=== PATIENT | female | born 1965 | race Caucasian/White ===

== ENCOUNTER 2017-10-19 16:40 | Inpatient (IN) | payer SELFPAY ==
[~2017-10-19] VITALS: Ht 154.9 cm; Wt 73.5 kg
[~2017-10-19 16:40] MED LIST: COL100 PO; MYL80 CH; NORCO1 TA2 PO; ZES5 PO
[2017-10-19 16:51] VITALS: Ht 154.9 cm; Wt 73.5 kg
[2017-10-19 17:52] LABS: microscopic required? NO
[2017-10-19] MEDS ORDERED: [UNRECOGNIZED DRUG - OTHER] PO (17:58)
[2017-10-19] MEDS ORDERED: APAP500 MG PO (17:58)
[2017-10-19 18:27] LABS: BASOPHIL % 0.4 % (0-2); PLATELET COUNT 236 x10^3mcL (130-400); RED CELL DISTRIBUTION WIDTH 13.8 % (11.5-14.5)
[2017-10-19 18:29] LABS: urine erythrocyte NEGATIVE (NEGATIVE)
[2017-10-19 18:41] LABS: ALKALINE PHOSPHATASE 100 U/L (46-116); ALT/SGPT 41 U/L (14-59); AST/SGOT 29 U/L (15-37); BILIRUBIN TOTAL 0.3 mg/dL (0.20-1.00); CALCIUM 8.2 mg/dL (8.5-10.1); CARBON DIOXIDE 24.5 mmol/L (21-32); CHLORIDE SERUM 102 mmol/L (98-107); CREATININE SERUM 0.7 mg/dL (0.6-1.0); GFR1 > 60 mL/min; GLUCOSE SERUM 91 mg/dL (74-106); SODIUM SERUM 140 mmol/L (136-145); TOTAL PROTEIN, SERUM 7.5 g/dL (6.4-8.2)
[2017-10-19 18:42] LABS: ALBUMIN 3.3 g/dL (3.4-5.0)
[2017-10-19 22:43] LABS: MAGNESIUM 2.1 mg/dL (1.8-2.4); PHOSPHOROUS 3.5 mg/dL (2.5-4.9)
[2017-10-19 22:49] LABS: CHOLESTEROL/HDL RATIO 4.8
[2017-10-19 22:51] LABS: T3 TOTAL 1.18 ng/mL
[2017-10-19 22:53] LABS: FREE T4 1.1 ng/dL (0.76-1.46); FREE THYROXINE INDEX 2.4 ug/dL (1.4-4.5); T4(THYROXINE) 7.5 ug/dL (4.7-13.3)
[2017-10-19 23:21] VITALS: BP 183/93
[2017-10-19 23:50] VITALS: BP 164/79
[2017-10-20 00:26] VITALS: BP 145/78
[2017-10-20 04:07] VITALS: BP 145/78
[2017-10-20 05:04] VITALS: BP 123/69
[2017-10-20 08:47] VITALS: BP 117/63
[2017-10-20 08:52] LABS: AMPHETAMINE QUAL UR NONE DETECTED (NEG <=1000)
[2017-10-20 09:53] LABS: BASOPHIL % 0.5 % (0-2); PLATELET COUNT 228 x10^3mcL (130-400); RED CELL DISTRIBUTION WIDTH 14.2 % (11.5-14.5)
[2017-10-20 10:07] LABS: CARBON DIOXIDE 25.6 mmol/L (21-32); CHLORIDE SERUM 107 mmol/L (98-107); CREATININE SERUM 0.7 mg/dL (0.6-1.0); GFR1 > 60 mL/min; GLUCOSE SERUM 87 mg/dL (74-106); MAGNESIUM 2.3 mg/dL (1.8-2.4); PHOSPHOROUS 3.7 mg/dL (2.5-4.9); SODIUM SERUM 142 mmol/L (136-145)
[2017-10-20 12:50] VITALS: BP 123/72
[2017-10-20] MEDS ORDERED: LIPI20 PO (13:01)
[2017-10-20] MEDS ORDERED: IBUPROFEN800 MG PO (13:27)
[2017-10-20] MEDS ORDERED: ZESTRIL5 MG PO (14:52)
[2017-10-20 15:55] VITALS: BP 123/72
== END 2017-10-20 16:37 | disposition home or self-care (01) | DRG 206 ==
LOC: ED 16:40 → DU 22:03
PROVIDERS: Emergency Medicine; Family Medicine Sports Medicine
DX: M94.0 Chondrocostal junction syndrome [Tietze] (principal); J90 Pleural effusion, not elsewhere classified; E44.1 Mild protein-calorie malnutrition; J98.11 Atelectasis; Z90.49 Acquired absence of other specified parts of digestive tract; R91.8 Other nonspecific abnormal finding of lung field; Z98.51 Tubal ligation status; Z82.3 Family history of stroke; Z82.49 Family history of ischemic heart disease and other diseases of the circulatory system; Z80.9 Family history of malignant neoplasm, unspecified; I10 Essential (primary) hypertension; E87.6 Hypokalemia; Z68.30 Body mass index [BMI] 30.0-30.9, adult; E78.5 Hyperlipidemia, unspecified; N20.0 Calculus of kidney; I16.0 Hypertensive urgency
CPT/HCPCS: 83880; 84439; 85378; 94150; J1885; J2270; J2405; J3480; J7030; J7620; Q0092; Q9967

== ENCOUNTER 2017-10-25 17:54 | Emergency (ER) | payer SELFPAY ==
[~2017-10-25 17:54] MED LIST changes: +APAP500 MG PO; +IBUPROFEN800 MG PO; +LIPI20 PO; +ZESTRIL5 MG PO; +[UNRECOGNIZED DRUG - OTHER] PO
[2017-10-25 20:14] VITALS: BP 170/65
== END 2017-10-25 20:14 | disposition home or self-care (01) ==
LOC: ED 17:54
DX: R42 Dizziness and giddiness (principal); R05 Cough; I10 Essential (primary) hypertension; E78.00 Pure hypercholesterolemia, unspecified
CPT/HCPCS: J8597; Q0162

== ENCOUNTER 2018-10-19 17:24 | Emergency (ER) | payer MEDICAID ==
[~2018-10-19] VITALS: Ht 154.9 cm; Wt 76.7 kg
[2018-10-19 17:29] VITALS: Ht 154.9 cm; Wt 76.7 kg
[2018-10-19 18:34] LABS: BASOPHIL % 0.4 % (0-2); PLATELET COUNT 222 x10^3mcL (130-400); RED CELL DISTRIBUTION WIDTH 13.5 % (11.5-14.5)
[2018-10-19 18:41] LABS: CALCIUM 8.5 mg/dL (8.5-10.1); CHLORIDE SERUM 105 mmol/L (98-107); CREATININE SERUM 0.7 mg/dL (0.6-1.0); GFR1 > 60 mL/min; GLUCOSE SERUM 90 mg/dL (74-106); POTASSIUM SERUM 3.5 mmol/L (3.5-5.1); SODIUM SERUM 139 mmol/L (136-145)
[2018-10-19 18:46] LABS: ALBUMIN 3.5 g/dL (3.4-5.0); ALKALINE PHOSPHATASE 90 U/L (46-116); ALT/SGPT 43 U/L (14-59); AST/SGOT 23 U/L (15-37); BILIRUBIN TOTAL 0.42 mg/dL (0.20-1.00); TOTAL PROTEIN, SERUM 7.6 g/dL (6.4-8.2)
[2018-10-19 19:37] VITALS: BP 145/74
== END 2018-10-19 19:37 | disposition home or self-care (01) ==
LOC: ED 17:24
PROVIDERS: Emergency Medicine
DX: R07.89 Other chest pain (principal); I10 Essential (primary) hypertension; E78.00 Pure hypercholesterolemia, unspecified
CPT/HCPCS: 36415; Q0092

== ENCOUNTER 2018-12-04 10:41 | Emergency (ER) | payer MEDICAID ==
[~2018-12-04] VITALS: Ht 154.9 cm; Wt 75.4 kg
[2018-12-04 10:44] VITALS: Ht 154.9 cm; Wt 75.4 kg
[2018-12-04 14:06] LABS: BASOPHIL % 0.5 % (0-2); PLATELET COUNT 217 x10^3mcL (130-400); RED CELL DISTRIBUTION WIDTH 13.6 % (11.5-14.5)
[2018-12-04 14:40] LABS: AMPHETAMINE QUAL UR NONE DETECTED (See below)
[2018-12-04 14:48] LABS: ALBUMIN 3.8 g/dL (3.4-5.0); ALKALINE PHOSPHATASE 97 U/L (46-116); ALT/SGPT 35 U/L (14-59); AST/SGOT 19 U/L (15-37); BILIRUBIN TOTAL 0.4 mg/dL (0.20-1.00); CALCIUM 8.8 mg/dL (8.5-10.1); CARBON DIOXIDE 28.4 mmol/L (21-32); CHLORIDE SERUM 105 mmol/L (98-107); CHOLESTEROL 253 mg/dL (<200); CHOLESTEROL/HDL RATIO 6.5; CREATININE SERUM 0.7 mg/dL (0.6-1.0); GFR1 > 60 mL/min; GLUCOSE SERUM 88 mg/dL (74-106); HDL CHOLESTEROL 39 mg/dL (40-60); LIPASE 235 IU/L (73-393); POTASSIUM SERUM 3.6 mmol/L (3.5-5.1); SODIUM SERUM 141 mmol/L (136-145); TRIGLYCERIDES 240 mg/dL (<150)
[2018-12-04 14:49] LABS: T3 TOTAL 1.34 ng/mL
[2018-12-04 14:50] LABS: FREE THYROXINE INDEX 2.8 ug/dL (1.4-4.5)
[2018-12-04 15:48] VITALS: BP 143/76
== END 2018-12-04 15:48 | disposition home or self-care (01) ==
LOC: ED 10:41
PROVIDERS: Specialist
DX: R00.2 Palpitations (principal); F41.9 Anxiety disorder, unspecified; I10 Essential (primary) hypertension; E78.00 Pure hypercholesterolemia, unspecified; Z98.51 Tubal ligation status; Z90.49 Acquired absence of other specified parts of digestive tract; Z98.890 Other specified postprocedural states
CPT/HCPCS: 36415; 83880; 84439